=== PATIENT | male | born 1985 | race Caucasian/White ===

== ENCOUNTER 2016-12-02 21:32 | Emergency (ER) | payer MEDICAID ==
[~2016-12-02] VITALS: Ht 175.3 cm; Wt 90.7 kg
[~2016-12-02 21:32] MED LIST: FLEXERIL10 MG PO
--- NOTE | 2016-12-02 21:55 | Emergency Room Report ---
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 Y Clinical Suspician of Infection? Y Mental Status: 1 - Regular (Normal Baseline) Sepsis Risk:Low Sepsis Risk Have you (or family members/close friends) recently traveled outside the [place]? N If Yes, where/when: Have you had exposure to infectious disease within the past month? N TB? Other? Specify: Comment The patient complains of RIGHT lower quadrant abdominal pain, vomiting, and diarrhea with subjective fever all starting about midnight last night. Vomiting started first, with pain a couple of hours later. About 6 episodes of vomiting and 2 episodes of diarrhea without blood. ALLERGIES Coded Allergies: No Known Allergies (10/10/16) History Medical History General CAD? No Angina: No [place]: No Hypertension? No Hyperlipidemia? No CHF? No DVT? No PE? No COPD? No Asthma? No Anemia? No GERD? No Gastric ulcers? No GI Bleed? No Hernia? No Thyroid Problems? No Hypothyroidism? No CVA? No Seizures? No Diabetes? No Renal Insuffiency? No End Stage Renal Disease? No UTI? No Stones? No BPH? No GB Disease: No Nephritic Syndrome? No Asplenia? No Hepatitis? No Sickle Cell Disease? No Arthritis? No Migraines? No Cataracts? No Glaucoma? No MRSA? No HIV? No TB? No Anxiety? No Depression? No Cancer? No More? Yes Additional hx: STAPH INFECTIONS Immunization Hx DT/Tetanus Unknown Surgical Hx Previous Surgery?N Social History Smoking Hx Smoker: Current Every Day Smoker Tobacco: Yes Type Cigarettes Alcohol Alcohol: Yes Review of Systems All Other Systems Reviewed and Negative Constitutional fever Gastrointestinal abdominal pain, diarrhea, nausea, vomiting Genitourinary other (Decreased urinary output). Physical Exam Vital Signs Vital Signs Date Time Temp Pulse Resp B/P Pulse O2 O2 Flow FiO2 Ox Delivery Rate 12/03 0000 98.5 69 18 118/67 100 12/02 2353 98.5 69 18 118/67 100 12/02 2310 72 18 116/63 98 12/02 2135 98.5 82 20 130/81 96 General Appearance no apparent distress Eye Exam - bilateral eye normal exam, bilateral eye PERRL, bilateral eye EOMI Ear, Nose, Throat hearing grossly normal, normal ENT inspection Neck normal inspection, non-tender, supple, full range of motion Respiratory Status Yes: trachea midline, chest symmetrical, non tender chest. No: respiratory distress. Lung Sounds bilateral: normal breath sounds, lungs clear. 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 No Comment 10:00 PM: Patient refuses medication for pain or nausea at this time. Results/Orders Laboratory Tests 12/02/162149: Lactic Acid 0.8 12/02/162149: Sodium 139, Potassium 3.6, Chloride 104, Carbon Dioxide 27, BUN 13, Creatinine 0.8, Estimated Creat Clear 172, Estimated GFR (MDRD) 113, Glucose 102, Calcium 8.9, Total Bilirubin 0.6, AST 9 L, ALT 21, Alkaline Phosphatase 65, Total Protein 7.1, Albumin 3.9, Globulin 3.2, Albumin/Globulin Ratio 1.2, Amylase 43, Lipase 111, WBC 13.7 H, RBC 5.12, Hgb 15.3, Hct 42.7, MCV 83.3, RDW 12.2, Plt Count 338, MPV 6.6 L, Gran % 68.5, Gran # 9.4 H, Lymphocytes % 23.6, Monocytes % 4.4, Eosinophils % 2.9, Basophils % 0.5, Lymphocytes # 3.2, Monocytes # 0.6, Eosinophils # 0.4, Basophils # 0.1, PUBS MCHC 35.7 H, MCH 29.8 Current Medication Orders Sig/Dianne Start time Last Medication Dose Route Stop Time Status Admin Promethazine HCl 0 .STK-MED ONE 12/02 2351 DC PO Promethazine HCl 1 GELA ONCE ONE 12/02 2345 DC PO 12/02 2346 Sodium Chloride 1,000 ML .STK-MED ONE 12/02 2332 DC IV Iopamidol 75 ML ONCE ONE 12/02 2315 DCD 12/02 IV 12/02 2316 2313 Sodium Chloride 1,000 ML .Q1H1M 12/02 2315 DCD 12/02 IV 12/03 0015 2336 Sodium Chloride 10 ML PRN PRN 12/02 2315 DCD 12/02 IV 12/03 0042 2313 Sodium Chloride 1,000 ML .STK-MED ONE 12/02 2158 DC IV Sodium Chloride 10 ML PRN PRN 12/02 214 DCD IV 12/03 2143 Sodium Chloride 1,000 ML .Q1H1M 12/02 2145 DC 12/02 IV 12/02 2245 2159 Sodium Chloride 10 ML PRN PRN 12/02 2144 DCD IV 12/03 2144 Orders Procedure Date/time Status DIET-NOTHING BY MOUTH 12/[address] ABD & PELVIS W/ CONTRAST 12/[address] ABD/PELVIS REQ 12/03 2143 Active IV SALINE LOCK 12/03 2143 Active CULTURE, BLOOD 12/03 2143 Active URINALYSIS/COMPLETE 12/03 2143 Active LIPASE 12/03 2143 Complete LACTIC ACID 12/03 2143 Complete CBC WITH AUTO DIFF 12/03 2143 Complete CHEM 12 PROFILE 12/03 2143 Complete AMYLASE 12/03 2143 Complete XRAY/CT/US XRAY/CT/US CT abdomen, pelvis Comment CT scan interpreted by ad radiologist. Faxed report received and reviewed: Normal appendix. No acute abnormality. Departure Departure Disposition DC Home or Self Care(routine) Clinical Impression Primary Impression: Acute gastroenteritis Secondary Impressions: Right lower quadrant abdominal pain Condition STABLE Referrals NIKKI FOSTER (Family) Patient Instructions DI for Abdominal Pain-Adult, DI for Viral Gastroenteritis - - Adult Additional Instructions Off work on 12/02/16. Phenergan as needed for nausea and vomiting, every 6 hours. Clear liquids until vomiting stops. Imodium as needed for diarrhea. Ibuprofen for pain or fever. Additional instructions for ABDOMINAL PAIN: See your physician as soon as possible for further evaluation. Return immediately if worsening abdominal pain, vomiting, shortness of breath, fever, vomiting of blood or abdominal distention. ED Critical Care Critical Care No at 0113
[2016-12-02 22:07] LABS: HEMOGLOBIN 15.3 g/dL (14.1-18.0); LYMPH # 3.2 K/mm3 (0.7-4.5); LYMPH % 23.6 % (10-50)
[2016-12-03] VITALS: BP 118/67
--- NOTE | 2016-12-03 11:14 | RADIOLOGY REPORT PS360 ---
CT ABD PELVIS W/ CONTRAST HISTORY: RLQ PAIN . N,V,D Patient Age: 31 years: Male Ordering Physician: Shon Bocanegra MD TECHNIQUE: Helical CT scanning abdomen pelvis with study 5 cc Isovue-370 contrast.. No oral enteric contrast.. Sagittal and coronal reconstructions on CT workstation. CPT) COMPARISON : FINDINGS Lower thorax. Lung bases clear with mild dependent atelectasis posterior right lung base.. Heart is normal in size. Abdomen/pelvis.. The liver, spleen, pancreas, adrenals, kidneys appear satisfactory. No significant findings. No retroperitoneal nor mesenteric adenopathy. The aorta normal caliber. Minimal atheromatous plaque is seen along the left aspect of the distal aorta and continuing to the left iliac artery. Nonflow restricting.. SMA celiac artery appear unremarkable. Gallbladder. No calcified gallstones. No biliary ductal dilatation. GI tract:. No bowel dilatation or obstruction. Small bowel unremarkable Mild/moderate stool throughout the colon . Appendix appears normal. Typical location and extends towards at the right pelvis. No free fluid nor free air in the abdomen or pelvis. Bones.: Note 3 cm height x 2.2 cm cm AP asymmetric sclerotic region just lateral to the right SI joint at the right iliac bone. Somewhat ill-defined margin.. Curious feature particularly in 31-year-old.. No expansion/no cortical changes or disruption.. Although it extends towards right SI joint to be somewhat unusual and lateral position for reactive changes related to SI joint.. Is a right SI joint or right pelvic pain at this level?.. And 31-year-old with no previous disease more likely this is a curious benign feature but Warrants follow-up;. Consider CXR PA and lateral to correlate and consider bone scan to be if right pelvic pain. This was not noted on the [facility] report. Any outside prior studies for comparison this area would be very helpful to confirm stability. Any history of old trauma this region? IMPRESSION... 1.. No acute findings in the abdomen or pelvis. The appendix appears normal. No acute nor significant GI or intra-abdominal findings. 2. Incidental observation of a 2.2 cm AP x 3 cm height asymmetric sclerotic area within right iliac bone at, just lateral to the right SI joint... Curious nonspecific feature that question somehow be related to SI joint reactive changes.. No expansion. No cortical disruption .. Ill-defined margin. Would benefit from follow-up & correlation. Note comments in text.. Consider bone scan particularly if pain at right pelvis Comment/. [facility] report no acute abdominal findings However however asymmetric sclerotic region right iliac bone was not noted on [facility] report ..Send to Ela
== END 2016-12-03 00:01 | disposition home or self-care (01) ==
LOC: ER 21:32
PROVIDERS: Emergency Medicine
DX: K52.9 Noninfective gastroenteritis and colitis, unspecified (principal); F17.210 Nicotine dependence, cigarettes, uncomplicated
CPT/HCPCS: Q9967